=== PATIENT | female | born 1955 | race African-American/Black ===

== ENCOUNTER 2023-11-01 09:36 | Inpatient (IN) | payer OTHER ==
[~2023-11-01] VITALS: Ht 165.1 cm; Wt 88.5 kg
[2023-11-01 10:12] LABS: Chloride 105 mmol/L (98-107); Potassium 4.2 mmol/L (3.5-5.1); Sodium 140 mmol/L (136-145)
[2023-11-01 10:13] LABS: Urine Bacteria None Seen /hpf (None Seen)
[2023-11-01 10:13] LABS: Anion Gap 3 (5-15); Calcium 9.5 mg/dL (8.5-10.1); Carbon Dioxide 32 mmol/L (20-30)
[2023-11-01 10:18] LABS: BUN/Creatinine Ratio 12.7 (10.0-20.0); Blood Urea Nitrogen 9 mg/dL (9-23); Glucose 106 mg/dL (74-106)
[2023-11-01 10:19] LABS: Basophils # (auto) 0 10 ^3/uL (0-0.2); Basophils % (auto) 0.3 % (0.0-2.0); Eosinophils # (auto) 0.1 10 ^3/uL (0-0.8); Eosinophils % (auto) 0.8 % (0.0-7.0); Hematocrit 40.5 % (36.0-46.0); Hemoglobin 13.1 g/dL (12.2-16.2); Lymphocytes # (auto) 2.7 10 ^3/uL (0.4-5.4); Lymphocytes % (auto) 30.2 % (10.0-50.0); Mean Corpuscular Hemoglobin 28.7 pg (28.0-32.0); Mean Corpuscular Hgb Conc. 32.4 g/dL (32.0-36.0); Mean Corpuscular Volume 88.6 fL (80.0-100.0); Monocytes # (auto) 0.7 10 ^3/uL (0-1.3); Monocytes % (auto) 8.1 % (0.0-12.0); Neutrophils # (auto) 5.4 10 ^3/uL (1.6-8.6); Neutrophils % (auto) 60.6 % (37.0-80.0); Nucleated Red Blood Cells % 0.2 %; Red Blood Cells 4.58 10^6/uL (4.0-5.20); Red Cell Distribution Width 17.3 % (11.8-14.3); White Blood Cell 8.9 10^3/uL (4.4-10.8)
[2023-11-01 10:23] LABS: Urine Blood 1+ /uL (Negative); Urine Clarity Clear (Clear); Urine Color Light-Yellow (Yellow); Urine Protein, UAD Negative (Negative); Urine Specific Gravity 1.012 (1.001-1.035); Urine Urobilinogen Normal (Negative); Urine WBC 1 /hpf (0 - 5); Urine pH 6.5 (5.0-9.0)
[2023-11-01] MEDS: SODIUM CHLORIDE 0.9% 1,000 ML IV ONE (11:33)
[2023-11-01] MEDS: KETOROLAC TROMETH 30 MG/ML 1ML VIAL IV ONE (11:36)
[2023-11-01 11:38] VITALS: PULSE 80; RESP 19; O2SAT 99
[2023-11-01] MEDS: ONDANSETRON ODT 4 MG TAB PO ONE (11:40)
[2023-11-01] MEDS: KETOROLAC TROMETH 30 MG/ML 1ML VIAL IM ONE (11:41)
[2023-11-01] MEDS: PIPERACILLIN-TAZOB 3.375GM 100 ML IV ONE (12:45)
[2023-11-01] MEDS ORDERED: DOCUSATE SOD 100 MG CAP PO PRN (12:45)
[2023-11-01] MEDS ORDERED: MORPHINE SULFATE INJ 2 MG/ml SYRG IV PRN (12:45)
[2023-11-01] MEDS: IOHEXOL 300 MG/ML 100ML BOTTLE IJ ONE (13:53)
[2023-11-01] MEDS: SODIUM CHLORIDE 0.9% 1,000 ML IV SCH (15:05)
[2023-11-01 16:46] VITALS: BP 146/74; PULSE 83; RESP 16; TEMP 97.7; O2SAT 98
[2023-11-01 17:01] VITALS: BP 146/74; PULSE 83; RESP 16; TEMP 97.7; O2SAT 98
[2023-11-01] MEDS: PIPERACILLIN-TAZOB 3.375GM 100 ML IV SCH (20:52)
[2023-11-01 21:00] VITALS: BP 147/69; PULSE 88; RESP 19; TEMP 98.2; O2SAT 94
[2023-11-02] MEDS: ONDANSETRON HCL 4 MG/2 ML VIAL IV PRN (00:34)
[2023-11-02 01:00] VITALS: BP 154/79; PULSE 80; RESP 19; TEMP 94.5; O2SAT 96
[2023-11-02 05:00] VITALS: BP 162/84; PULSE 83; RESP 18; TEMP 98; O2SAT 98
[2023-11-02] MEDS ORDERED: LOSA100T33 PO (05:08)
[2023-11-02 05:19] LABS: Basophils # (auto) 0.1 10 ^3/uL (0-0.2); Basophils % (auto) 0.6 % (0.0-2.0); Eosinophils # (auto) 0.1 10 ^3/uL (0-0.8); Hematocrit 37.8 % (36.0-46.0); Hemoglobin 12.1 g/dL (12.2-16.2); Lymphocytes % (auto) 24.8 % (10.0-50.0); Mean Corpuscular Hemoglobin 28.5 pg (28.0-32.0); Mean Corpuscular Volume 88.9 fL (80.0-100.0); Monocytes # (auto) 0.7 10 ^3/uL (0-1.3); Monocytes % (auto) 8.4 % (0.0-12.0); Neutrophils # (auto) 5.3 10 ^3/uL (1.6-8.6); Neutrophils % (auto) 65.2 % (37.0-80.0); Nucleated Red Blood Cells % 0.1 %; Red Blood Cells 4.25 10^6/uL (4.0-5.20); Red Cell Distribution Width 17.3 % (11.8-14.3); White Blood Cell 8.2 10^3/uL (4.4-10.8)
[2023-11-02 05:32] LABS: Alanine Aminotransferase 22 U/L (7-40); Albumin 3.6 g/dL (3.2-4.8); Alkaline Phosphatase 72 U/L (46-116); Anion Gap 5 (5-15); Aspartate Aminotransferase 14 U/L (13-40); BUN/Creatinine Ratio 16.9 (10.0-20.0); Bilirubin, Total 0.4 mg/dL (0.2-1.0); Blood Urea Nitrogen 13 mg/dL (9-23); Calcium 8.9 mg/dL (8.7-10.4); Carbon Dioxide 27 mmol/L (20-30); Chloride 108 mmol/L (98-107); Glucose 148 mg/dL (74-106); Potassium 3.9 mmol/L (3.5-5.1); Sodium 140 mmol/L (136-145); Total Protein 6.7 g/dL (5.7-8.2)
[2023-11-02] MEDS: hydrALAZINE HCL 20 MG/ML VL IV PRN (05:38)
[2023-11-02 07:52] LABS: Platelet Estimate Adequate
[2023-11-02 08:30] VITALS: RESP 14
[2023-11-02 09:28] VITALS: BP 148/69; PULSE 90; RESP 18; TEMP 98.8; O2SAT 97
[2023-11-02] MEDS ORDERED: ZOFR4T PO (12:13)
[2023-11-02] MEDS ORDERED: METR-344 PO (12:14)
[2023-11-02] MEDS ORDERED: LEVO500T91 PO (12:14)
== END 2023-11-02 13:20 | disposition home or self-care (01) | DRG 395 ==
LOC: ER 09:36 → OVERFLOW 12:41 → EAST 15:21
PROVIDERS: ADMIT Internal Medicine; ATTEND Internal Medicine
DX: K36 Other appendicitis (principal); N20.0 Calculus of kidney; I10 Essential (primary) hypertension; Z90.711 Acquired absence of uterus with remaining cervical stump; Z90.49 Acquired absence of other specified parts of digestive tract; Z88.5 Allergy status to narcotic agent
CPT/HCPCS: 36415; 74176; 74177; 80048; 80053; 81001; 85025; 96365; 96372; G0378; J1885; J2405; J2543; Q0162